=== PATIENT | female | born 1990 | race Two or more races ===

== ENCOUNTER 2018-03-23 12:05 | Emergency (ER) | payer SELFPAY ==
[~2018-03-23] VITALS: Ht 165.1 cm; Wt 118.2 kg
[2018-03-23 12:06] VITALS: BP 152/99
== END 2018-03-23 14:29 | disposition left against medical advice (07) ==
LOC: EMS 12:07
DX: R10.2 Pelvic and perineal pain (principal); R05 Cough; R09.81 Nasal congestion; Z53.21 Procedure and treatment not carried out due to patient leaving prior to being seen by health care provider

== ENCOUNTER 2018-03-24 11:29 | Emergency (ER) | payer SELFPAY ==
[~2018-03-24] VITALS: Ht 165.1 cm; Wt 115.9 kg
[2018-03-24 11:32] VITALS: BP 118/71
== END 2018-03-24 14:37 | disposition home or self-care (01) ==
LOC: EMS 11:30
DX: L73.1 Pseudofolliculitis barbae (principal); J20.9 Acute bronchitis, unspecified; R35.0 Frequency of micturition

== ENCOUNTER 2019-04-13 10:49 | Emergency (ER) | payer SELFPAY ==
[~2019-04-13] VITALS: Ht 170.2 cm; Wt 127.3 kg
[2019-04-13 11:32] LABS: BASOPHILS % (AUTO) 0.4 % (0.0-2.0); EOSINOPHILS % (AUTO) 1.3 % (1.0-6.0); HEMOGLOBIN 13.2 g/dL (12.0-16.0); LYMPHOCYTES # (AUTO) 2.7 K/uL (1.0-4.8); LYMPHOCYTES % (AUTO) 21.2 % (22.0-44.0); MEAN CORPUSCULAR HEMOGLOBIN 28.8 pg (26.0-34.0); MEAN CORPUSCULAR VOLUME 87 fL (80-100); MONOCYTES # (AUTO) 0.5 K/uL (0.1-1.0); MONOCYTES % (AUTO) 3.7 % (2.0-9.0); NEUTROPHILS # (AUTO) 9.5 K/uL (1.8-7.7); NEUTROPHILS % (AUTO) 73.4 % (40.0-70.0); PLATELET COUNT (AUTO) 376 K/uL (150-450); RED BLOOD CELL COUNT(AUTO) 4.58 MIL/uL (4.00-5.20); RED CELL DISTRIBUTION WIDTH 13.6 % (11.5-14.5)
[2019-04-13 11:42] LABS: ANION GAP 8 mmol/L (8-16); CALCIUM, TOTAL 8.8 mg/dL (8.8-10.5); CARBON DIOXIDE 28 mmol/L (22-29); CHLORIDE 104 mmol/L (98-107); CREATININE 0.67 mg/dL (0.60-1.30); GLOMERULAR FILTR. RATE CALC > 60 mL/min (>60); GLUCOSE,RANDOM 108 mg/dL (70-110); SODIUM SERUM 140 mmol/L (136-145); UREA NITROGEN, BLOOD 13 mg/dL (7-18)
[2019-04-13 12:17] LABS: HCG,QUANTITATIVE < 1 mIU/mL (0-6)
[2019-04-13 12:30] VITALS: BP 135/82
[2019-04-13] MEDS ORDERED: KETOROLAC TROMETHAMINE 60 MG/2 ML VIAL IM ONE (12:30)
== END 2019-04-13 12:40 | disposition home or self-care (01) ==
LOC: EMS 10:49
DX: R07.89 Other chest pain (principal); F41.9 Anxiety disorder, unspecified; F12.90 Cannabis use, unspecified, uncomplicated
CPT/HCPCS: 36415; 71045; 80048; 84484; 84702; 85025; 93005; 96372; 99284; J1885

== ENCOUNTER 2019-05-01 16:35 | Emergency (ER) | payer SELFPAY ==
[~2019-05-01] VITALS: Ht 165.1 cm; Wt 136.4 kg
[2019-05-01] MEDS ORDERED: BENZONATATE 100 MG CAPSULE PO ONE (18:15)
[2019-05-01 20:31] LABS: APPEARANCE,URINE CLOUDY (CLEAR); BILIRUBIN,URINE NEGATIVE (NEGATIVE); GLUCOSE, URINE (UA) NEGATIVE (NEGATIVE); KETONES,URINE NEGATIVE (NEGATIVE); LEUKOCYTE ESTERASE ,URINE NEGATIVE (NEGATIVE); NITRATE,URINE NEGATIVE (NEGATIVE); OCCULT BLOOD,URINE SMALL (NEGATIVE); PROTEIN,URINE NEGATIVE (NEGATIVE); UROBILINOGEN,URINE 0.2 mg/dL (<=1.0)
[2019-05-01 20:35] VITALS: BP 121/76
[2019-05-01 20:37] LABS: BACTERIA,URINE Many /HPF (None Seen); RBC,URINE 0-2 /HPF (0-2); SQUAMOUS EPITHELIAL CELL,UR Moderate /LPF (None Seen)
[2019-05-01 20:38] LABS: WBC,URINE 0-2 /HPF (0-5)
== END 2019-05-01 21:02 | disposition home or self-care (01) ==
LOC: EMS 16:36
DX: J40 Bronchitis, not specified as acute or chronic (principal); N39.0 Urinary tract infection, site not specified; F12.90 Cannabis use, unspecified, uncomplicated
CPT/HCPCS: 87086

== ENCOUNTER 2020-02-13 19:11 | Emergency (ER) | payer SELFPAY ==
[~2020-02-13] VITALS: Ht 165.1 cm; Wt 145.4 kg
[2020-02-13 20:00] LABS: APPEARANCE,URINE CLEAR (CLEAR); BILIRUBIN,URINE NEGATIVE (NEGATIVE); GLUCOSE, URINE (UA) NEGATIVE (NEGATIVE); KETONES,URINE NEGATIVE (NEGATIVE); LEUKOCYTE ESTERASE ,URINE NEGATIVE (NEGATIVE); NITRATE,URINE NEGATIVE (NEGATIVE); OCCULT BLOOD,URINE NEGATIVE (NEGATIVE); PROTEIN,URINE NEGATIVE (NEGATIVE); UROBILINOGEN,URINE 0.2 mg/dL (<=1.0)
[2020-02-13] MEDS ORDERED: LOPERAMIDE HCL 2 MG CAPSULE PO ONE (20:30)
[2020-02-13] MEDS ORDERED: ACETAMINOPHEN 500 MG TABLET PO ONE (20:30)
[2020-02-13] MEDS ORDERED: ONDANSETRON HCL 4 MG/2 ML VIAL IVP ONE (20:30)
[2020-02-13] MEDS ORDERED: SODIUM CHLORIDE 0.9% 1,000 ML IV ONE (20:30)
[2020-02-13 20:36] LABS: BASOPHILS % (AUTO) 0.4 % (0.0-2.0); EOSINOPHILS % (AUTO) 0.5 % (1.0-6.0); HEMATOCRIT 38.5 % (36-46); HEMOGLOBIN 12.5 g/dL (12.0-16.0); LYMPHOCYTES # (AUTO) 1.6 K/uL (1.0-4.8); LYMPHOCYTES % (AUTO) 10.4 % (22.0-44.0); MEAN CORPUSCULAR HEMOGLOBIN 27.4 pg (26.0-34.0); MEAN CORPUSCULAR HGB CONC 32.3 G/dL (31.0-37.0); MEAN CORPUSCULAR VOLUME 85 fL (80-100); MONOCYTES # (AUTO) 0.5 K/uL (0.1-1.0); MONOCYTES % (AUTO) 3.5 % (2.0-9.0); NEUTROPHILS # (AUTO) 13.3 K/uL (1.8-7.7); PLATELET COUNT (AUTO) 326 K/uL (150-450); RED BLOOD CELL COUNT(AUTO) 4.55 MIL/uL (4.00-5.20); RED CELL DISTRIBUTION WIDTH 14.2 % (11.5-14.5)
[2020-02-13 20:42] LABS: NEUTROPHILS % (AUTO) 85.2 % (40.0-70.0)
[2020-02-13 20:46] LABS: COVID AG,FIA SOURCE NASOPHARYNGEAL
[2020-02-13 21:02] LABS: ANION GAP 8 mmol/L (8-16); CALCIUM, TOTAL 9.2 mg/dL (8.8-10.5); CARBON DIOXIDE 26 mmol/L (22-29); CHLORIDE 100 mmol/L (98-107); GLOMERULAR FILTR. RATE CALC > 60 mL/min (>60); GLUCOSE,RANDOM 102 mg/dL (70-110); POTASSIUM 4.2 mmol/L (3.5-5.1); SODIUM SERUM 134 mmol/L (136-145); UREA NITROGEN, BLOOD 9 mg/dL (7-18)
[2020-02-13 21:08] LABS: ALANINE AMINOTRANSFERASE 34 U/L (12-78); ALBUMIN 3.2 g/dL (3.4-5.0); ALKALINE PHOSPHATASE 87 U/L (46-116); ASPARTATE AMINOTRANSFERASE 17 U/L (15-37); BILIRUBIN,TOTAL 0.5 mg/dL (0.1-1.0); TOTAL PROTEIN, SERUM 7.5 g/dL (6.4-8.2)
[2020-02-13 21:34] VITALS: BP 132/88
== END 2020-02-13 21:59 | disposition home or self-care (01) ==
LOC: EMS 19:11
DX: R19.7 Diarrhea, unspecified (principal); M79.10 Myalgia, unspecified site; R53.1 Weakness; F17.200 Nicotine dependence, unspecified, uncomplicated; F12.90 Cannabis use, unspecified, uncomplicated; Z20.828 Contact with and (suspected) exposure to other viral communicable diseases
CPT/HCPCS: 36415; 80053; 81003; 84703; 85025; 87426; 96374; 99283; J2405; J7030

== ENCOUNTER 2020-02-27 10:12 | Emergency (ER) | payer SELFPAY ==
[~2020-02-27] VITALS: Ht 170.2 cm; Wt 118.2 kg
[2020-02-27 10:14] VITALS: BP 114/69
[2020-02-27] MEDS: CEPHALEXIN MONOHYDRATE 500 MG CAPSULE PO ONE (11:28)
[2020-02-27] MEDS: IBUPROFEN 800 MG TABLET PO ONE (11:28)
== END 2020-02-27 11:50 | disposition home or self-care (01) ==
LOC: EMS 10:12
DX: L02.415 Cutaneous abscess of right lower limb (principal); L03.115 Cellulitis of right lower limb; F12.90 Cannabis use, unspecified, uncomplicated

== ENCOUNTER 2021-10-16 21:42 | Emergency (ER) | payer MEDICAID, OTHER ==
[~2021-10-16] VITALS: Ht 170.2 cm; Wt 118.2 kg
[2021-10-16 23:16] LABS: APPEARANCE,URINE HAZY (CLEAR); BILIRUBIN,URINE NEGATIVE (NEGATIVE); GLUCOSE, URINE (UA) 150-200 mg/dL (NEGATIVE); KETONES,URINE NEGATIVE (NEGATIVE); LEUKOCYTE ESTERASE ,URINE SMALL (NEGATIVE); NITRATE,URINE NEGATIVE (NEGATIVE); OCCULT BLOOD,URINE LARGE (NEGATIVE); PROTEIN,URINE TRACE mg/dL (NEGATIVE); SPECIFIC GRAVITIY, URINE 1.028 (1.003-1.030); UROBILINOGEN,URINE <=1.0 mg/dL (<=1.0)
[2021-10-16 23:26] LABS: BACTERIA,URINE Rare /HPF (None Seen); SQUAMOUS EPITHELIAL CELL,UR Few /LPF (None Seen)
[2021-10-16 23:28] LABS: BASOPHILS % (AUTO) 0.7 % (0.0-2.0); HEMATOCRIT 37.8 % (36-46); HEMOGLOBIN 12.6 g/dL (12.0-16.0); LYMPHOCYTES # (AUTO) 2.7 K/uL (1.0-4.8); LYMPHOCYTES % (AUTO) 24.6 % (22.0-44.0); MEAN CORPUSCULAR HEMOGLOBIN 27.4 pg (26.0-34.0); MEAN CORPUSCULAR HGB CONC 33.4 G/dL (31.0-37.0); MEAN CORPUSCULAR VOLUME 82 fL (80-100); MONOCYTES # (AUTO) 0.5 K/uL (0.1-1.0); MONOCYTES % (AUTO) 4.9 % (2.0-9.0); NEUTROPHILS # (AUTO) 7.3 K/uL (1.8-7.7); NEUTROPHILS % (AUTO) 66.8 % (40.0-70.0); PLATELET COUNT (AUTO) 433 K/uL (150-450); RED BLOOD CELL COUNT(AUTO) 4.61 MIL/uL (4.00-5.20); RED CELL DISTRIBUTION WIDTH 14.2 % (11.5-14.5)
[2021-10-16 23:45] LABS: ANION GAP 7 mmol/L (8-16); CALCIUM, TOTAL 9.1 mg/dL (8.8-10.5); CARBON DIOXIDE 30 mmol/L (22-29); CHLORIDE 100 mmol/L (98-107); GLUCOSE,RANDOM 236 mg/dL (70-110); POTASSIUM 4.3 mmol/L (3.5-5.1); SODIUM SERUM 137 mmol/L (136-145); UREA NITROGEN, BLOOD 13 mg/dL (7-18)
[2021-10-16 23:54] LABS: GLOMERULAR FILTR. RATE CALC > 60 mL/min (>60)
[2021-10-16 23:57] LABS: ALANINE AMINOTRANSFERASE 26 U/L (12-78); ALKALINE PHOSPHATASE 99 U/L (46-116); ASPARTATE AMINOTRANSFERASE 13 U/L (15-37); BILIRUBIN,TOTAL 0.2 mg/dL (0.1-1.0); HCG,QUANTITATIVE < 1 mIU/mL (0-6); LIPASE 111 U/L (73-393)
[2021-10-17] MEDS ORDERED: CEPH-558 PO (00:41)
[2021-10-17] MEDS ORDERED: FAMO20 PO (00:41)
[2021-10-17] MEDS ORDERED: CEPHALEXIN MONOHYDRATE 500 MG CAPSULE PO ONE (00:45)
[2021-10-17] MEDS ORDERED: PB/HYOSCY/ATR/SCOP/LIDO/MAALOX 55 ML BOTTLE PO ONE (00:45)
[2021-10-17 01:01] VITALS: BP 138/62
== END 2021-10-17 01:03 | disposition home or self-care (01) ==
LOC: EMS 21:45
DX: R10.12 Left upper quadrant pain (principal); N39.0 Urinary tract infection, site not specified; M79.10 Myalgia, unspecified site; F12.90 Cannabis use, unspecified, uncomplicated; R39.15 Urgency of urination
CPT/HCPCS: 80053; 81001; 83690; 84702; 85025; 87086; 99283

== ENCOUNTER 2022-12-26 11:47 | Emergency (ER) | payer OTHER ==
[~2022-12-26] VITALS: Ht 165.1 cm; Wt 165.0 kg
[~2022-12-26 11:47] MED LIST: CEPH-558 PO; FAMO20 PO
[2022-12-26] MEDS ORDERED: METF-1211 PO (11:56)
[2022-12-26] MEDS ORDERED: [UNRECOGNIZED DRUG - CODE] (11:56)
[2022-12-26 11:59] VITALS: BP 128/93; PULSE 108; RESP 18; TEMP 98.6
[2022-12-26 12:14] LABS: APPEARANCE,URINE CLEAR (CLEAR); BILIRUBIN,URINE NEGATIVE (NEGATIVE); GLUCOSE, URINE (UA) TRACE mg/dL (NEGATIVE); KETONES,URINE NEGATIVE (NEGATIVE); LEUKOCYTE ESTERASE ,URINE LARGE (NEGATIVE); NITRATE,URINE NEGATIVE (NEGATIVE); OCCULT BLOOD,URINE NEGATIVE (NEGATIVE); PROTEIN,URINE NEGATIVE (NEGATIVE); SPECIFIC GRAVITIY, URINE 1.022 (1.003-1.030); UROBILINOGEN,URINE <=1.0 mg/dL (<=1.0)
[2022-12-26 12:18] LABS: BASOPHILS % (AUTO) 0.3 % (0.0-2.0); EOSINOPHILS % (AUTO) 2.2 % (1.0-6.0); HEMATOCRIT 40.7 % (36-46); HEMOGLOBIN 12.5 g/dL (12.0-16.0); LYMPHOCYTES # (AUTO) 2.7 K/uL (1.0-4.8); LYMPHOCYTES % (AUTO) 18.4 % (22.0-44.0); MEAN CORPUSCULAR HEMOGLOBIN 24.9 pg (26.0-34.0); MEAN CORPUSCULAR HGB CONC 30.8 G/dL (31.0-37.0); MEAN CORPUSCULAR VOLUME 81 fL (80-100); MONOCYTES # (AUTO) 0.5 K/uL (0.1-1.0); MONOCYTES % (AUTO) 3.1 % (2.0-9.0); NEUTROPHILS # (AUTO) 11.2 K/uL (1.8-7.7); PLATELET COUNT (AUTO) 499 K/uL (150-450); RED BLOOD CELL COUNT(AUTO) 5.03 MIL/uL (4.00-5.20); RED CELL DISTRIBUTION WIDTH 15.2 % (11.5-14.5)
[2022-12-26 12:20] LABS: BACTERIA,URINE Few /HPF (None Seen); RBC,URINE 0-2 /HPF (0-2); SQUAMOUS EPITHELIAL CELL,UR Moderate /LPF (None Seen)
[2022-12-26 12:29] LABS: ANION GAP 9 mmol/L (8-16); CALCIUM, TOTAL 9.4 mg/dL (8.8-10.5); CARBON DIOXIDE 27 mmol/L (22-29); CHLORIDE 98 mmol/L (98-107); CREATININE 0.63 mg/dL (0.60-1.30); GLOMERULAR FILTR. RATE CALC > 60 mL/min (>60); GLUCOSE,RANDOM 195 mg/dL (70-110); POTASSIUM 4.3 mmol/L (3.5-5.1); SODIUM SERUM 134 mmol/L (136-145)
[2022-12-26 12:34] LABS: ALANINE AMINOTRANSFERASE 19 U/L (12-78); ALBUMIN 3.1 g/dL (3.4-5.0); ALKALINE PHOSPHATASE 90 U/L (46-116); ASPARTATE AMINOTRANSFERASE 13 U/L (15-37); BILIRUBIN,TOTAL 0.2 mg/dL (0.1-1.0); TOTAL PROTEIN, SERUM 8.1 g/dL (6.4-8.2)
[2022-12-26 12:55] LABS: HCG,QUANTITATIVE < 1 mIU/mL (0-6)
[2022-12-26] MEDS ORDERED: MICO45CR76 VG (13:18)
[2022-12-26] MEDS ORDERED: LANC1COM12 (13:18)
[2022-12-26] MEDS ORDERED: CEPH-558 PO (13:18)
== END 2022-12-26 13:38 | disposition home or self-care (01) ==
LOC: EMS 11:50
DX: N39.0 Urinary tract infection, site not specified (principal); E11.65 Type 2 diabetes mellitus with hyperglycemia; F12.90 Cannabis use, unspecified, uncomplicated; Z98.890 Other specified postprocedural states
CPT/HCPCS: 80053; 81001; 84702; 85025; 87086; 87186; 99283

== ENCOUNTER 2024-07-08 22:46 | Emergency (ER) | payer OTHER ==
[~2024-07-08] VITALS: Ht 165.1 cm; Wt 124.5 kg
[~2024-07-08 22:46] MED LIST changes: -FAMO20 PO; +LANC1COM12; +METF-1211 PO; +MICO45CR76 VG; +[UNRECOGNIZED DRUG - CODE]
[2024-07-08 22:50] VITALS: BP 132/80; PULSE 108; RESP 19; TEMP 98.3; O2SAT 100
[2024-07-08] MEDS ORDERED: SEMA1PEN3 SQ (22:54)
[2024-07-08] MEDS ORDERED: SULF-261 PO (23:33)
[2024-07-08] MEDS ORDERED: CEPH-558 PO (23:33)
[2024-07-09] MEDS: SULFAMETHOX/TRIMETH DS 800-160 MG/TABLET PO ONE (00:26)
[2024-07-09] MEDS: CEPHALEXIN MONOHYDRATE 500 MG CAPSULE PO ONE (00:26)
[2024-07-09] MEDS: BACITRACIN 0.9 GM PACKET OINTMENT TP ONE (00:27)
== END 2024-07-09 00:59 | disposition home or self-care (01) ==
LOC: EMS 22:50
DX: L03.012 Cellulitis of left finger (principal); E11.9 Type 2 diabetes mellitus without complications; F12.90 Cannabis use, unspecified, uncomplicated; F17.210 Nicotine dependence, cigarettes, uncomplicated; Z79.85 Long-term (current) use of injectable non-insulin antidiabetic drugs; Z87.440 Personal history of urinary (tract) infections
CPT/HCPCS: 10060; 99283

== ENCOUNTER 2025-04-14 09:45 | Emergency (ER) | payer OTHER ==
[~2025-04-14] VITALS: Ht 167.6 cm; Wt 131.0 kg
[~2025-04-14 09:45] MED LIST changes: +AMOX-457 PO; -CEPH-558 PO; -LANC1COM12; -METF-1211 PO; -MICO45CR76 VG; -[UNRECOGNIZED DRUG - CODE]
[2025-04-14 09:52] VITALS: TEMP 97.9
[2025-04-14 10:52] LABS: APPEARANCE,URINE TURBID (CLEAR); GLUCOSE, URINE (UA) NEGATIVE (NEGATIVE); LEUKOCYTE ESTERASE ,URINE MODERATE (NEGATIVE); NITRATE,URINE NEGATIVE (NEGATIVE); OCCULT BLOOD,URINE LARGE (NEGATIVE); SPECIFIC GRAVITIY, URINE 1.024 (1.003-1.030)
[2025-04-14 10:56] LABS: PLATELET COUNT (AUTO) 317 K/uL (150-450); RED BLOOD CELL COUNT(AUTO) 4.85 MIL/uL (4.00-5.20); RED CELL DISTRIBUTION WIDTH 14.1 % (11.5-14.5); WHITE BLOOD COUNT (AUTO) 11.5 K/uL (4.5-11.0)
[2025-04-14 11:00] LABS: SQUAMOUS EPITHELIAL CELL,UR Few /LPF (None Seen)
[2025-04-14 11:04] LABS: CALCIUM, TOTAL 8.7 mg/dL (8.8-10.5); CREATININE 0.57 mg/dL (0.60-1.30); GLOMERULAR FILTR. RATE CALC > 60 mL/min (>60); GLUCOSE,RANDOM 215 mg/dL (70-110); SODIUM SERUM 135 mmol/L (136-145); UREA NITROGEN, BLOOD 8 mg/dL (7-18)
[2025-04-14 11:38] VITALS: BP 143/77; PULSE 89; RESP 18; O2SAT 98
[2025-04-14] MEDS ORDERED: CEPH-558 PO (13:16)
== END 2025-04-14 13:28 | disposition home or self-care (01) ==
LOC: EMS 09:52
DX: O02.1 Missed abortion (principal); O23.41 Unspecified infection of urinary tract in pregnancy, first trimester; O24.111 Pre-existing type 2 diabetes mellitus, in pregnancy, first trimester; Z87.19 Personal history of other diseases of the digestive system; Z90.49 Acquired absence of other specified parts of digestive tract; Z98.890 Other specified postprocedural states; Z79.899 Other long term (current) drug therapy; Z3A.01 Less than 8 weeks gestation of pregnancy
CPT/HCPCS: 76801; 80048; 81001; 84702; 85025; 87086; 99284